=== PATIENT | female | born 1965 | race Caucasian/White ===

== ENCOUNTER 2022-01-03 07:57 | Emergency (ER) | payer OTHER, SELFPAY ==
--- NOTE | ~2022-01-03 | XR_ITS ---
XR knee LT min 4V 01/03/2022 08:43 Indication: Left knee pain Procedure: 4 views left knee Comparison: No prior studies for comparison. Findings: Mild patellofemoral compartment osteoarthritis. Small joint effusion. No fracture or trauma tic malalignment. Impression: 1: Small joint effusion. 2: Mild patellofemoral compartment osteoarthritis. Reviewed, dictated and finalized at location A. Impression: 1: Small joint effusion. 2: Mild patellofemoral compartment osteoarthritis.
[2022-01-03 08:08] VITALS: BP 150/99; PULSE 77; RESP 18; TEMP 36.9; O2SAT 99
[2022-01-03] MEDS: HYDROcodone/acetaminophen (*CRX) 5-325 MG TABLET 1 TAB PO (08:44)
--- NOTE | 2022-01-03 09:20 | ED.GENADULT ---
HPI - General Adult General Chief complaint: Extremity Injury, Lower Stated complaint: L knee pain Time Seen by Provider: 01/03/22 07:59 Source: RN notes reviewed History of Present Illness HPI narrative: Patient presents emergency department from home for left knee pain. Patient states has been having pain in her left knee for approximately the past 1 month. The pain is located over the left lateral knee going and posterior knee states that she seen her PCP about this and is been on medications including muscle relaxers with no relief and is now scheduled to see a specialist and is waiting to the specialist. She states that today she was seen on the toilet and went to get up and if she was going to stand up she felt a pop in the left lateral aspect of her knee with increased pain states she has been able to bear weight on the left leg since that time. She denies any pain in the hip or ankle she denies any direct trauma or injury denies any numbness or tingling in the extremity has not taking pain medication for the symptoms Related Data Allergies Allergy/AdvReac Type Severity Reaction Status Date / Time demeclocycline Allergy Hives Verified 01/03/22 08:13 [From Declomycin] Penicillins Allergy Swelling Verified 01/03/22 08:13 of Lip/Tongue/Throat Review of Systems Review of Systems: Gen.: Denies fevers or chills Musculoskeletal: See HPI Neuro: Denies numbness, tingling, weakness Skin: Denies rash Endo: Denies DM [facility] Past Medical History Medical History (Updated 01/03/22 @ 09:23 by Gene Mejias DO) Patient denies significant medical history Social History Social History (Updated 01/03/22 @ 09:21 by Gene Mejias DO) Smoking status: Never smoker Exam Narrative: APPEARANCE: No acute distress, nontoxic, resting in bed Eyes: EOMI HEENT: Normocephalic, atraumatic, RESPIRATORY: No respiratory distress MUSCULOSKELETAl: Tender palpation of the left lateral knee with mild swelling present no tenderness over the anterior medial knee pain with flexion greater than 45 degrees no tenderness of the left hip or ankle dorsalis pedis pulse 2+ neurovascular intact NEURO: Awake and alert. Following commands, speech normal, no focal deficits SKIN:: Warm, dry. Normal Color no rash or lesions Course Course Emergency Course: Discussed with patient results of workup and diagnosis. Discussed need for follow-up with primary care, proper use of medication, and reasons to return to the emergency department. Patient understands and agrees to current treatment plan Vital Signs Vital signs: Vital Signs Temperature 98.5 F 01/03/22 08:08 Pulse Rate 77 01/03/22 08:08 Respiratory Rate 18 01/03/22 08:08 Blood Pressure 150/99 H 01/03/22 08:08 Pulse Oximetry 99 01/03/22 08:08 Oxygen Delivery Room Air 01/03/22 08:08 Temperature 98.5 F 01/03/22 08:08 Pulse Rate 77 01/03/22 08:08 Respiratory Rate 18 01/03/22 08:08 Blood Pressure 150/99 H 01/03/22 08:08 Pulse Oximetry 99 01/03/22 08:08 Oxygen Delivery Room Air 01/03/22 08:08 Medical Decision Making Vital Signs Vital Signs: Vital Signs Temperature 98.5 F 01/03/22 08:08 Pulse Rate 77 01/03/22 08:08 Respiratory Rate 18 01/03/22 08:08 Blood Pressure 150/99 H 01/03/22 08:08 Pulse Oximetry 99 01/03/22 08:08 Oxygen Delivery Room Air 01/03/22 08:08 Temperature 98.5 F 01/03/22 08:08 Pulse Rate 77 01/03/22 08:08 Respiratory Rate 18 01/03/22 08:08 Blood Pressure 150/99 H 01/03/22 08:08 Pulse Oximetry 99 01/03/22 08:08 Oxygen Delivery Room Air 01/03/22 08:08 Imaging Data Radiologist's impression: ITS Impressions Knee X-Ray 01/03/22 08:52 Impression: 1: Small joint effusion. 2: Mild patellofemoral compartment osteoarthritis. Discharge Plan Discharge Clinical Impression: Left knee sprain Patient Disposition: Home, Self-Care Condition: Stable
== END 2022-01-03 10:21 | disposition home or self-care (01) ==
PROVIDERS: Emergency Provider Emergency Medicine; PCP Radiology Diagnostic Radiology
DX: S83.92XA Sprain of unspecified site of left knee, initial encounter (principal); M17.12 Unilateral primary osteoarthritis, left knee; X58.XXXA Exposure to other specified factors, initial encounter
CPT/HCPCS: 73564; 99283; A9270

== ENCOUNTER 2022-01-24 08:34 | Outpatient (CLI) | payer OTHER, SELFPAY ==
--- NOTE | ~2022-01-24 | MR_ITS ---
EXAMINATION: MR knee LT wo con DATE: 01/24/2022 09:38 INDICATION: Left knee pain. TECHNIQUE: Magnetic resonance imaging (MRI) of the left knee was performed without intravenous contra st. Sequences included axial PD-weighted FS FSE, coronal PD-weighted FSE and PD-weighted FS FSE, sagi ttal PD-weighted FSE, and sagittal T2-weighted FS FSE. COMPARISON: Left knee radiographs 01/03/2022 FINDINGS: Medial compartment: There is a horizontal undersurface tear of body and posterior horn of medial meniscus. There is parti al-thickness cartilage loss of femoral condyle, deep at the central articular surface. There is shall ow partial-thickness cartilage loss of tibial condyle Lateral compartment: There is an upper surface horizontal tear of body of lateral meniscus. Lateral compartment cartilage is normal. Patellofemoral compartment: There is full-thickness cartilage loss of patellar median ridge, medial facet, and lateral facet with mild subchondral edema-like marrow signal intensity. There is deep partial thickness cartilage loss of medial trochlea with mild subchondral edema-like marrow signal intensity. Osteophytes are noted. Ligaments and tendons: The anterior and posterior cruciate ligaments are normal. There are changes of prior sprain of medial collateral ligament characterized by thickening and increased signal intensity. The lateral collater al ligament complex is normal. There is mild patellar tendinopathy. Fluid: There is a moderate-sized knee joint effusion. There is a moderate-sized ruptured Randle's cyst. There is mild prepatellar and superficial infrapatellar bursitis. IMPRESSION: 1. Severe chondrosis of patellofemoral compartment, moderate chondrosis of medial compartment, and mi ld chondrosis of lateral compartment. 2. Tears of medial and lateral menisci. 3. Moderate-sized knee joint effusion. 4. Moderate-sized ruptured Randle's cyst. Reviewed, dictated and finalized at location A. IMPRESSION: 1. Severe chondrosis of patellofemoral compartment, moderate chondrosis of medi al compartment, and mild chondrosis of lateral compartment. 2. Tears of medial and lateral menisci. 3. Moderate-sized knee joint effusion. 4. Moderate-sized ruptured Randle's cyst.
== END 2022-01-24 08:35 | disposition home or self-care (01) ==
LOC: ANHIMG 08:36
PROVIDERS: PCP Radiology Diagnostic Radiology; Visit Provider Orthopaedic Surgery
DX: S83.282A Other tear of lateral meniscus, current injury, left knee, initial encounter (principal); S83.242A Other tear of medial meniscus, current injury, left knee, initial encounter; X58.XXXA Exposure to other specified factors, initial encounter; M25.462 Effusion, left knee; M71.22 Synovial cyst of popliteal space [Baker], left knee
CPT/HCPCS: 73721

== ENCOUNTER 2022-02-25 12:02 | Outpatient (CLI) | payer OTHER, SELFPAY ==
--- NOTE | 2022-02-25 12:23 | ECG_ITS ---
Measurements Intervals Belt Rate: 72 P: 41 ID: [id number] QRS: 31 QRSD: 68 T: 35 QT: 347 QTc: 381 Interpretive Statements SINUS RHYTHM NORMAL ECG NO PREVIOUS ECG AVAILABLE FOR COMPARISON Electronically Signed On 02-25-2022 21:21:38 CDT by Judah Bourgeois D.O.
[2022-02-25 13:12] LABS: Anion Gap 13 mmol/L (8-16); Blood Urea Nitrogen 11 mg/dL (7-17); Carbon Dioxide 27 mmol/L (22-30); Chloride 99 mmol/L (98-107); Estimated Glomerular Filt Rate > 60; Glucose 248 mg/dL (65-110); Potassium 4.1 mmol/L (3.4-5.0); Sodium 139 mmol/L (137-145)
== END 2022-02-25 12:03 | disposition home or self-care (01) ==
LOC: ANHSURGERY 12:06
PROVIDERS: Anesthesiology; PCP Internal Medicine; Visit Provider Orthopaedic Surgery
DX: E11.9 Type 2 diabetes mellitus without complications (principal); Z01.818 Encounter for other preprocedural examination
CPT/HCPCS: 36415; 80048; 93005

== ENCOUNTER 2022-03-01 00:26 | Day surgery (SDC) | payer OTHER, SELFPAY ==
[2022-02-24 14:08] VITALS: BMI 33.0
--- NOTE | 2022-02-24 14:32 | PC.NURSE ---
Report to the Outpatient Waiting Room, entrance under the green pavilion located off [facility], at time 0900 on date 03/01/22. OR Time: 1100__. Time changes happen often and if your time is changed the preop area will call you the afternoon before. - You and your visitor will be asked to self-screen and do not enter if you have any COVID symptoms. - Only one visitor and NO children visitors are allowed at this time. - The patient visitor is requested to leave or wait in car when not with patient due to restrictions. - A mask is required within the hospital. Patients may have clear liquids (water, carbonated beverages, clear teas, apple juice) until 3 hours prior to surgery with a maximum of 20 ounces. - No food from midnight until time of surgery - Infants may have breast milk until 4 hours before surgery, infant formula 6 hours prior to surgery. - Children will be allowed to drink immediately following surgery. If applicable, please bring a bottle or sippy cup to assist with drinking. Juice, water, soda, and popsicles are readily available. For infants on formula, please bring formula the day of surgery. Pacifiers are allowed. Take the following medications with a SIP of water the morning of surgery: n/a Medications to discontinue per physician ibuprofen(02/24/22), no glimepiride morning of surgery___ Date to take last dose Please no make-up, nail mongolian, hairspray, perfume, deodorant, or body powder the day of surgery. No jewelry (including any body piercings) or valuables the day of surgery, leave them at home. Please take a shower or bath the night before, or the morning of, surgery with an antibacterial soap. Wear comfortable, loose fitting clothing. Children are encouraged to wear pajamas. - Jewelry must be removed prior to entering the operating room. Rings and piercings that are not removed may be cut off. - The hospital will not accept responsibility for valuables. - Please leave all valuables, including medications, at home the day of surgery. If you are going home after surgery, a licensed form setter/driver must drive you home. - NO public transportation without another adult. - We recommend that an adult stay with you for 24 hours following discharge. - We also recommend that you do not drive, make important decision, drink alcoholic beverages, or take any drugs that were not prescribed by your health care provider for at least 24 hours after your discharge time. For Pediatric surgeries, we recommend two adults accompany the child home (only one inside the building at this time). Follow any additional instructions given to you from your surgeon. If you or anyone in your household have experienced Covid symptoms in the past week, please notify your surgeon or the nurse liaison at the phone number below for possible testing. Telephone instructions given to Ne Olivarez and asked if any additional questions and then verbalized understanding. Patient advised to call surgeon office or pre surgery nurse liaison [phone] if any additional questions.
[2022-03-01] VITALS (8 sets, daily range): BP systolic 113–137; BP diastolic 62–82; PULSE 72–85; RESP 12–21; TEMP 36.6–36.8; O2SAT 94–100
--- NOTE | 2022-03-01 07:14 | WPDHPUPDATE1 ---
History and Physical Update Update Date/Time: 03/01/22 07:14 History and Physical has been reviewed, including an updated exam of the patient. There are NO changes in the patient's condition. Risks, benefits, and alternatives have been discussed and questions answered. Patient agrees to proceed with procedure.
[2022-03-01] MEDS: ACETAMINOPHEN 500 MG TABLET 1000 MG PO (09:39)
[2022-03-01] MEDS: CELECOXIB 200 MG CAPSULE PO (09:39)
[2022-03-01] MEDS: LACTATED RINGERS 1,000 ML 30 ML IV CONT ×2 (09:45→12:30)
[2022-03-01 09:58] LABS: Glucose Point of Care 231 mg/dl (65-105)
--- NOTE | 2022-03-01 09:59 | P.PNAN_ITS ---
Anes - Initial Pre Proc Eval Procedure: Operation Date: 03/01/22 11:00 Proposed Procedures p Left Knee Arthroscopy - Maxwell Adamson MD Date/Time: 03/01/22 09:59 Surgeon: Maxwell Adamson MD Pre Op Diagnosis: LtMedial &Lateral Menicus Tears Patient Data Age: 57 Gender: F Height: 1.65 m Weight: 90 kg Allergies Allergy/AdvReac Type Severity Reaction Status Date / Time demeclocycline Allergy Hives Verified 03/01/22 10:00 [From Declomycin] Penicillins Allergy Swelling Verified 03/01/22 10:00 of Lip/Tongue/Throat Home Medications Medication Instructions Recorded Confirmed Type ibuprofen 600 mg tablet 600 mg PO TID PRN pain #14 tabs 01/03/22 02/24/22 Rx glimepiride 2 mg tablet 2 mg PO QAM 01/19/22 02/24/22 History metformin 1,000 mg tablet 1,000 mg PO DAILY 01/19/22 02/24/22 History chlorhexidine gluconate 4 % 1 applic topical ONCE #237 mL 02/04/22 02/24/22 Rx topical liquid (Hibiclens) Laboratory Tests 03/01/22 09:52 POC Capillary Glucose 231 mg/dl H mg/dl (65-105) Patient hx anesthesia problems: post op nausea/vomiting Family hx anesthesia problems: none Results Review: All pre-operative results and documents have been reviewed as part of the pre- operative evaluation. [facility] Past Medical History Medical History Adverse effect of anesthesia Arthritis Diabetes mellitus Patient denies significant medical history Family History Family History Other Acute myocardial infarction Arthritis Asthma Depression Diabetes mellitus Hypertension Lymphoma Neuropathy Social History Social History Smoking packs per day: 1 Smoking cigarettes per day: 20.0 Years smoked: 18 Smoking pack-years: 18.00 Smoking status: Former smoker Tobacco type: cigarettes and e-cigarettes/vaping Smoking end date: 06/12/14 Alcohol intake: never Substance use: current Substance use type: marijuana Last use: 02/24/22 Living arrangements: with family Spiritual care concerns: No Anes - Eval Final PreProcedure Day of Procedure 03/01/22 09:59 Patient weight: obese Heart: regular rate and rhythm Lungs: clear to auscultation Airway: Mallampati scale class II (missing teeth) Neurological: alert and oriented Last oral intake: >/= 8 hours ASA classification: III Emergent: no Anesthetic plan: proceed Anesthesia type and monitoring: general LMA and standard monitoring Results Review: All pre-operative results and documents have been reviewed as part of the pre- operative evaluation. Informed Consent: The patient's anesthetic plan and its attendant risks and benefits were discussed with the patient/family/POA. Questions were solicited and answers provided to the satisfaction of the patient/family/POA.
[2022-03-01] MEDS: ceFAZolin 2 GM/D5W 50 ML 2 GM/50 ML BAG IVPB (10:53)
--- NOTE | 2022-03-01 11:18 | SUR.PREOP ---
930: PT VERBALIZES PROFICIENCY WITH CRUTCHES AND OWNS A PAIR FOR HOME USE
[2022-03-01 12:49] LABS: Glucose Point of Care 206 mg/dl (65-105)
[2022-03-01] MEDS: fentaNYL CITRATE INJ (*CRX) 100 MCG/2 ML VIAL 25 MCG IV PUSH ×4 (12:51→13:10)
--- NOTE | 2022-03-01 13:00 | W.PM.PROC2 ---
Procedure Note - Detailed Date of Procedure 03/01/22 Pre-op Diagnosis LtMedial &Lateral Menicus Tears Post-op Diagnosis Other (LEFT MEDIAL AND LATERAL MENISCUS TEAR) Procedure Performed LEFT KNEE SCOPE Surgeon Maxwell Adamson MD Anesthesia General Description of Procedure PATIENT WAS TAKEN TO THE OR. THE LEFT LEG WAS PREPPED AND DRAPED STERILE. TROCARS WERE PLACED IN THE USUAL FASHION. CAMERA WAS INTRODUCED. THERE WAS CHONDROMALACIA TO THE PATELLA FEMORAL JOINT. THERE WAS A LOT OF SYNOVITIS IN ALL COMPARTMENTS. THE MEDIAL COMPARTMENT SHOWED CHONDROMALACIA TO THE MEDIAL FEMORAL CONDYLE. A SHAVER WAS USED TO PREFORM A CHONDROPLASTY. THERE WAS A LARGE COMPLEX MEDIAL MENISCUS TEAR. THE TEAR WAS RESECTED WITH A BITER AND A SHAVER DOWN TO A SMOOTH BASE. ABOUT 30% OF THE MENISCUS WAS REMOVED. THE ACL WAS INTACT. THE LATERAL MENISCUS WAS TORN AT THE POSTERIOR HORN AND CONTINUED THROUGH THE LATERAL HORN. THE TEAR WAS RESECTED. THE LATERAL COMPARTMENT HAD MINIMAL CHONDROMALACIA AT THE LATERAL FEMORAL CONDYLE. CHONDROPLASTY WAS PREFORMED. A SYNOVECTOMY WAS PREFORMED WELL. THE PATELLO FEMORAL JOINT UNDERWENT CHONDROPLASTY. THERE WAS GRADE 3 CHONDROMALACIA IN MOST OF THE TROCHLEA AND PART OF THE PATELLA. SYNOVECTOMY WAS PREFORMED IN THE SUPERIOR MEDIAL COMPARTMENT. THE WOUNDS WERE APPROXIMATED WITH 4.0 NYLON. STERILE DRESSING WAS APPLIED. PATIENT WAS EXTUBATED. Estimated Blood Loss -25.0 Complications No immediate complications Condition Stable Disposition PACU
[2022-03-01] MEDS: oxyCODONE HCL (*CRX) 5 MG TAB IR PO (13:55)
== END 2022-03-01 14:37 | disposition home or self-care (01) ==
PROVIDERS: PCP Internal Medicine; Visit Provider Orthopaedic Surgery
PROC: (CPT 29870; principal; 2022-03-01 11:00)
DX: S83.232A Complex tear of medial meniscus, current injury, left knee, initial encounter (principal); S83.282A Other tear of lateral meniscus, current injury, left knee, initial encounter; X50.0XXA Overexertion from strenuous movement or load, initial encounter; M22.42 Chondromalacia patellae, left knee; M65.862 Other synovitis and tenosynovitis, left lower leg; E11.9 Type 2 diabetes mellitus without complications; Z79.84 Long term (current) use of oral hypoglycemic drugs; Z87.891 Personal history of nicotine dependence; F12.90 Cannabis use, unspecified, uncomplicated; E66.9 Obesity, unspecified; Z68.33 Body mass index [BMI] 33.0-33.9, adult
CPT/HCPCS: 29880; 36415; 80048; 82948; 93005; A9270; J0690; J2250; J2405; J2704; J3010; J7120